=== PATIENT | female | born 1960 | race Caucasian/White ===

== ENCOUNTER 2016-04-26 08:51 | Day surgery (SDC) | payer OTHER ==
[2016-04-26] VITALS (10 sets, daily range): BP systolic 110–137; BP diastolic 53–71; PULSE 66–70; RESP 16–20; Ht 165.1 cm; Wt 71.0 kg
[~2016-04-26] VITALS: Ht 165.1 cm; Wt 71.0 kg
[~2016-04-26 08:51] MED LIST: ATOR40TA68 PO; CITRACAL PO; LIDOCAINE 2% (SDV) 5 ML INJ ONE; METF500T4 PO
--- NOTE | 2016-04-26 09:40 | RADRPT ---
PROCEDURE: Chest Radiograph. CLINICAL INDICATION: Preop. TECHNIQUE: Single frontal chest radiograph. COMPARISON: None available FINDINGS: The cardiomediastinal silhouette is within normal limits. No infiltrate or effusion is seen. Th e bones are intact. IMPRESSION: 1. Unremarkable chest radiograph. RPTAT: KK .Moises Davis MD, MD Date Time Electronically viewed and signed by .Moises Davis MD, on 04/26/2016 09:40 .B/
[2016-04-26] MEDS ORDERED: SOD CHLORIDE 0.9% 1,000 ML IV SCH (10:00)
[2016-04-26] MEDS ORDERED: CEFAZOLIN 2 GM/50 ML (PMX) 50 ML IVPB SCH (10:00)
[2016-04-26] MEDS ORDERED: OMEP40CA6 PO (10:22)
[2016-04-26] MEDS ORDERED: BUPIVACAINE 0.25% (MPF) 30 ML INJ ONE (11:06)
[2016-04-26] MEDS ORDERED: FENTAnyl 50 MCG/ML VIAL ONE (12:20)
[2016-04-26] MEDS ORDERED: MIDAZOLAM 1 MG/ML 2 ML INJ ONE (12:20)
[2016-04-26] MEDS ORDERED: LIDOCAINE 2% (MDV) 20 ML INJ ONE (12:30)
[2016-04-26] MEDS ORDERED: BUPIVACAINE 0.5% (SDV) 30 ML INJ ONE (12:30)
[2016-04-26] MEDS ORDERED: BUPIVACAINE 0.25% (MPF) 30 ML INJ INJ ONE (12:35)
[2016-04-26] MEDS ORDERED: PROPOFOL 20 ML ONE (12:49)
[2016-04-26] MEDS ORDERED: CEFAZOLIN 1 GM INJ ONE (12:49)
[2016-04-26] MEDS ORDERED: HYDROCODONE/APAP (5/325) TAB PO ONE (13:00)
--- NOTE | 2016-04-26 15:18 | OPR ---
DATE OF OPERATION: 04/26/2016 INDICATION: This is a 55-year-old female with a back mass. She requests surgical excision. Risks, alternatives, benefits, and personnel were discussed with the patient. Patient expressed understan ding and consents to the operation. PREOPERATIVE DIAGNOSIS: Back mass. POSTOPERATIVE DIAGNOSIS: Back mass. OPERATION PERFORMED: 1. Excision of back mass, 4-cm incision x 1-cm size mass. 2. Localized adjacent tissue transfer with the use of skin flaps. SURGEON: Eliseo Gaines MD SPECIMEN: Back mass. COMPLICATIONS: None. ANESTHESIA: MAC. PROCEDURE: The patient is taken to the OR and prepped and draped in usual sterile fashion. Surgica l timeout was performed. IV antibiotics were given. Local anesthesia was injected. Using a 15 shama de, an elliptical incision was made over the mass. Dissection cautery was carried down to the mass and circumferentially excised. There was good hemostasis. Due to tissue defect, localized tissue t ransfer with the use of skin flaps was performed. Multilevel closure with interrupted 3-0 Vicryl an d skin britton. Dry dressing was applied. Dictated By: ELISEO GAINES MD SB/GARRISON Conf#: [id number] DID#: [id number]
--- NOTE | 2016-04-28 15:48 | RADRPT ---
Vent Rate: 74 bpm RR Interval: 0 msec CA Interval: 166 msec QRS Duration: 84 msec QT Interval: 414 msec QTC Interval: 459 msec P-R-T North Reading: 54 - 48 - 39 degrees Normal sinus rhythm Nonspecific T wave abnormality Abnormal ECG Electronically Signed By: Russell Billings [id number]
== END 2016-04-26 14:25 | disposition home or self-care (01) ==
LOC: SDS 08:51
PROVIDERS: ATTEND Surgery
DX: L72.0 Epidermal cyst (principal); E11.9 Type 2 diabetes mellitus without complications; E78.5 Hyperlipidemia, unspecified
CPT/HCPCS: 14000; 71010; 82962; 84703; 88307; 93005; J0690; J2250; J3010; Z7512; Z7610